=== PATIENT | male | born 1955 | race Caucasian/White ===

== ENCOUNTER 2017-02-27 09:05 | Emergency (ER) | payer MEDICARE, MEDICAID ==
[~2017-02-27] VITALS: Ht 175.3 cm; Wt 75.0 kg
[2017-02-27] MEDS ORDERED: FLUO40CA9 PO (09:18)
[2017-02-27] MEDS ORDERED: BUPR1FIL5 SUBD (09:18)
[2017-02-27 09:29] LABS: HEMATOCRIT 42.4 % (39.2-51.8); HEMOGLOBIN 13.9 g/dL (13.7-18.0); WHITE BLOOD COUNT 10.3 x10^3/uL (3.4-10)
[2017-02-27] MEDS ORDERED: PLEASE ENTER ALLERGIES MC SCH ×2 (09:30)
[2017-02-27] MEDS ORDERED: LORazepam 2 MG/ML, 1ML IVPush ONE (09:30)
[2017-02-27] MEDS ORDERED: MORPHINE SULFATE 4 MG/ML, 1ML IVPush PRN (09:30)
[2017-02-27] MEDS ORDERED: ONDANSETRON 2MG/ML, 2ML IVPush ONE (09:30)
[2017-02-27 09:41] LABS: ASPARTATE AMINO TRANSFERASE 12 U/L (15-37); BLOOD UREA NITROGEN 21 mg/dL (7-18)
[2017-02-27] MEDS ORDERED: MORPHINE SULFATE 4 MG/ML, 1ML ONE (09:53)
[2017-02-27 09:54] LABS: IS PT STATUS REG ER OR PRE ER? YES
[2017-02-27] MEDS ORDERED: ASPIRIN 81 MG TABLET CHEW ONE (09:54)
[2017-02-27] MEDS ORDERED: ONDANSETRON 2MG/ML, 2ML ONE (09:54)
[2017-02-27] MEDS ORDERED: LORazepam 2 MG/ML, 1ML ONE (09:54)
[2017-02-27] MEDS ORDERED: ASPIRIN 81 MG TABLET CHEW PO ONE (10:00)
[2017-02-27] MEDS ORDERED: KETOROLAC 30 MG/1 ML IVPush ONE (10:00)
[2017-02-27] MEDS ORDERED: KETOROLAC 30 MG/1 ML ONE (10:15)
[2017-02-27] MEDS ORDERED: CEFOTETAN PMX 1GM/50ML 50 ML ONE (11:07)
[2017-02-27 11:29] VITALS: BP 130/78
== END 2017-02-27 11:34 | disposition home or self-care (01) ==
LOC: ED 10:42
DX: S16.1XXA Strain of muscle, fascia and tendon at neck level, initial encounter (principal); M25.512 Pain in left shoulder; K21.9 Gastro-esophageal reflux disease without esophagitis; F17.200 Nicotine dependence, unspecified, uncomplicated; Z86.73 Personal history of transient ischemic attack (TIA), and cerebral infarction without residual deficits; X58.XXXA Exposure to other specified factors, initial encounter; Y93.89 Activity, other specified; Y92.89 Other specified places as the place of occurrence of the external cause; Y99.9 Unspecified external cause status
CPT/HCPCS: 36415; 71010; 72125; 80053; 84484; 85025; 85379; 93005; 96374; 96375; 99285; J1885; J2060; J2405

== ENCOUNTER 2018-12-19 08:33 | Emergency (ER) | payer MEDICARE, MEDICAID ==
[~2018-12-19] VITALS: Ht 175.3 cm; Wt 69.0 kg
[~2018-12-19 08:33] MED LIST: BUPR1FIL5 SUBD; FLUO40CA9 PO
[2018-12-19] MEDS ORDERED: MAALOX/HYOSCYAMINE/LIDOCAINE 45 ML BTL ONE (08:53)
[2018-12-19] MEDS ORDERED: MAALOX/HYOSCYAMINE/LIDOCAINE 45 ML BTL PO ONE (09:00)
--- NOTE | 2018-12-19 09:00 | NUR ---
ARRIVED BY AMBULANCE WITH BURNING ABDOMINAL AND EPIGASTRIC PAIN. MEDICATED PER ORDERS FOR SAME
--- NOTE | 2018-12-19 09:09 | NUR ---
PT STATES GI COCKTAIL SEEMED TO HELP WITH BURNING ABDOMINAL PAIN BUT THAT STILL HARD TO SWALLOW BECAUSE OF BURNING EPIGASTRIC PAIN. PT DENIES DIARRHEA, BLOOD IN STOOL OR VOMITING. PT STATES HE TAKES SUBOXONE AND THAT CAUSES CONSTIPATION
[2018-12-19 09:21] LABS: ALBUMIN 4.4 g/dL (3.4-5.0); ANION GAP 8 mmol/L (5-15); CHLORIDE 107 mmol/L (98-107)
[2018-12-19 09:23] LABS: BASOPHILS # (AUTO) 0.04 x10^3/uL (0-0.1); BASOPHILS % (AUTO) 0 % (0-1); EOSINOPHILS # (AUTO) 0.02 x10^3/uL (0-0.4); EOSINOPHILS % (AUTO) 0 % (1-7); LYMPHOCYTES # (AUTO) 1.32 x10^3/uL (1-3.4); LYMPHOCYTES % (AUTO) 14 % (22-44); MD NO; MEAN CORPUSCULAR HEMOGLOBIN 31.2 pg (27.5-34.5); MEAN CORPUSCULAR HGB CONC 33.3 g/dL (33.2-36.2); MEAN CORPUSCULAR VOLUME 93.7 fL (81-97); MEAN PLATELET VOLUME 9.2 fL (7.4-10.4); MONOCYTES # (AUTO) 0.68 x10^3/uL (0.2-0.8); MONOCYTES % (AUTO) 7 % (2-9); NEUTROPHILS # (AUTO) 7.31 x10^3/uL (1.8-6.8); NEUTROPHILS % (AUTO) 78 % (42-75); PLATELET COUNT 232 x10^3/uL (130-400); RED BLOOD COUNT 4.89 x10^6/uL (4.38-5.82); RED CELL DISTRIBUTION WIDTH 13.1 % (9.4-14.8)
[2018-12-19 09:24] LABS: ALANINE AMINOTRANSFERASE 20 U/L (12-78); ALKALINE PHOSPHATASE 77 U/L (45-117); BILIRUBIN,TOTAL 0.9 mg/dL (0.2-1.0); CREATININE 0.97 mg/dL (0.7-1.3)
--- NOTE | 2018-12-19 09:55 | NUR ---
REPORT RECEIVED FROM MAI HOOPER. ASSUMED CARE OF PT. PT AWARE THAT WE ARE WAITING FOR LAB/IMAGING RESULTS. PT ON CONT BP, CARDIAC AND O2 MONITORS. CALL LIGHT WITHIN REACH.
[2018-12-19 10:06] LABS: TROPONIN I < 0.015 ng/mL (0.000-0.045)
[2018-12-19 10:38] VITALS: BP 129/73
== END 2018-12-19 10:39 | disposition home or self-care (01) ==
LOC: ED 09:24
DX: R07.89 Other chest pain (principal); R10.13 Epigastric pain; K21.9 Gastro-esophageal reflux disease without esophagitis; F32.9 Major depressive disorder, single episode, unspecified; Z86.73 Personal history of transient ischemic attack (TIA), and cerebral infarction without residual deficits; F17.200 Nicotine dependence, unspecified, uncomplicated; Z88.0 Allergy status to penicillin
CPT/HCPCS: 36415; 71045; 80053; 83690; 84484; 85025; 93005; 99284

== ENCOUNTER 2019-04-28 18:45 | Emergency (ER) | payer MEDICARE, MEDICAID ==
[~2019-04-28] VITALS: Ht 175.3 cm; Wt 73.0 kg
--- NOTE | 2019-04-28 18:57 | NUR ---
Provided report to MAI Abrams. All questions answered. MAI Abrams to assume care of pt at this time.
[2019-04-28] MEDS ORDERED: LORazepam 1MG TABLET ONE (19:16)
[2019-04-28 19:23] LABS: BASOPHILS # (AUTO) 0.03 x10^3/uL (0-0.1); BASOPHILS % (AUTO) 0 % (0-1); EOSINOPHILS # (AUTO) 0.07 x10^3/uL (0-0.4); EOSINOPHILS % (AUTO) 1 % (1-7); LYMPHOCYTES # (AUTO) 2.73 x10^3/uL (1-3.4); LYMPHOCYTES % (AUTO) 37 % (22-44); MD NO; MEAN CORPUSCULAR HEMOGLOBIN 31.6 pg (27.5-34.5); MEAN CORPUSCULAR HGB CONC 32.9 g/dL (33.2-36.2); MEAN CORPUSCULAR VOLUME 95.8 fL (81-97); MEAN PLATELET VOLUME 9.3 fL (7.4-10.4); MONOCYTES # (AUTO) 0.61 x10^3/uL (0.2-0.8); MONOCYTES % (AUTO) 8 % (2-9); NEUTROPHILS # (AUTO) 3.86 x10^3/uL (1.8-6.8); NEUTROPHILS % (AUTO) 53 % (42-75); PLATELET COUNT 207 x10^3/uL (130-400); RED BLOOD COUNT 4.91 x10^6/uL (4.38-5.82); RED CELL DISTRIBUTION WIDTH 12.7 % (9.4-14.8)
[2019-04-28 19:28] LABS: AMPHETAMINE SCREEN, URINE Negative (Negative); BARBITURATE SCREEN, URINE Negative (Negative); BENZODIAZEPINE SCREEN, URINE Positive (Negative); CANNABINOID SCREEN, URINE Positive (Negative); COCAINE SCREEN, URINE Negative (Negative); METHADONE SCREEN, URINE Negative (Negative); OPIATE SCREEN, URINE Negative (Negative)
[2019-04-28] MEDS ORDERED: LORazepam 1MG TABLET PO ONE (19:30)
[2019-04-28] MEDS ORDERED: PLEASE ENTER HEIGHT AND WEIGHT MC SCH (19:30)
[2019-04-28 19:35] LABS: ALBUMIN 4.3 g/dL (3.4-5.0); ANION GAP 6 mmol/L (5-15); CHLORIDE 110 mmol/L (98-107)
[2019-04-28 19:47] LABS: ALANINE AMINOTRANSFERASE 16 U/L (12-78); ALKALINE PHOSPHATASE 74 U/L (45-117); BILIRUBIN,TOTAL 0.7 mg/dL (0.2-1.0); CREATININE 0.95 mg/dL (0.7-1.3); SALICYLATE LEVEL 8.5 mg/dL (2.8-20.0); TOTAL PROTEIN 7.7 g/dL (6.4-8.2)
--- NOTE | 2019-04-28 20:39 | NUR ---
PT ROOM SECURED WITH SI PERCAUTIONS AND SITTER AT PT DOOR.
--- NOTE | 2019-04-28 22:42 | NUR ---
PT ROOM SECURED WITH SI PERCAUTIONS AND SITTER AT PT DOOR.
--- NOTE | 2019-04-28 23:24 | NUR ---
Met with pt and conferred with psychiatrist. Pt will be admitted to 391.
[2019-04-29 00:44] VITALS: BP 132/78
[2019-05-01] MEDS ORDERED: FAMO20TA7 PO (13:20)
[2019-05-01] MEDS ORDERED: PANT40TA5 PO (13:20)
[2019-05-01] MEDS ORDERED: FLUO20CA8 PO (13:20)
== END 2019-04-29 00:47 ==
LOC: ED 22:02
DX: F32.2 Major depressive disorder, single episode, severe without psychotic features (principal); M54.9 Dorsalgia, unspecified; G89.29 Other chronic pain; K21.9 Gastro-esophageal reflux disease without esophagitis; Z86.73 Personal history of transient ischemic attack (TIA), and cerebral infarction without residual deficits; F17.210 Nicotine dependence, cigarettes, uncomplicated
CPT/HCPCS: 36415; 80053; 80307; 84443; 85025; 99285

== ENCOUNTER 2019-08-20 08:49 | Emergency (ER) | payer MEDICARE, MEDICAID ==
[~2019-08-20] VITALS: Ht 175.3 cm; Wt 61.5 kg
[~2019-08-20 08:49] MED LIST changes: +FAMO20TA7 PO; +FLUO20CA23 PO; +PANT40TA5 PO
[2019-08-20 09:24] LABS: BASOPHILS # (AUTO) 0.01 x10^3/uL (0-0.1); BASOPHILS % (AUTO) 0 % (0-1); EOSINOPHILS % (AUTO) 0 % (1-7); LYMPHOCYTES # (AUTO) 0.64 x10^3/uL (1-3.4); LYMPHOCYTES % (AUTO) 7 % (22-44); MD NO; MEAN CORPUSCULAR HEMOGLOBIN 31.7 pg (27.5-34.5); MEAN CORPUSCULAR HGB CONC 33.8 g/dL (33.2-36.2); MEAN CORPUSCULAR VOLUME 93.9 fL (81-97); MEAN PLATELET VOLUME 8.9 fL (7.4-10.4); MONOCYTES % (AUTO) 11 % (2-9); NEUTROPHILS # (AUTO) 7.41 x10^3/uL (1.8-6.8); NEUTROPHILS % (AUTO) 82 % (42-75); PLATELET COUNT 188 x10^3/uL (130-400); RED BLOOD COUNT 4.74 x10^6/uL (4.38-5.82); RED CELL DISTRIBUTION WIDTH 13.1 % (9.4-14.8)
--- NOTE | 2019-08-20 09:26 | NUR ---
PT TO RAD.
[2019-08-20] MEDS ORDERED: MAALOX/HYOSCYAMINE/LIDOCAINE 45 ML BTL ONE (09:27)
[2019-08-20] MEDS ORDERED: SODIUM CHLORIDE 0.9% 1,000ML IVBOLUS ONE (09:30)
[2019-08-20] MEDS ORDERED: MAALOX/HYOSCYAMINE/LIDOCAINE 45 ML BTL PO ONE (09:30)
[2019-08-20 09:33] LABS: ALANINE AMINOTRANSFERASE 18 U/L (12-78); ALBUMIN 3.8 g/dL (3.4-5.0); ANION GAP 14 mmol/L (5-15); CHLORIDE 103 mmol/L (98-107)
[2019-08-20 09:36] LABS: ALKALINE PHOSPHATASE 91 U/L (45-117); BILIRUBIN,TOTAL 0.6 mg/dL (0.2-1.0); TOTAL PROTEIN 7.5 g/dL (6.4-8.2)
--- NOTE | 2019-08-20 09:39 | NUR ---
PT RETURNED FROM RAD.
--- NOTE | 2019-08-20 10:01 | NUR ---
PT UPRIGHT ON GURNEY AWAKE & ASKING FOR WATER, RESPONDS APPROP TO STAFF, BROTHER AT BS, COMFORT MEASURES PROVIDED, CALL LIGHT WITHIN REACH.
[2019-08-20 10:02] VITALS: BP 127/75
--- NOTE | 2019-08-20 10:37 | NUR ---
Patient given discharge instructions and Rx, they have confirmed that they understand the instructions. Patient ambulatory with steady gait.
== END 2019-08-20 10:37 | disposition home or self-care (01) ==
LOC: ED 10:25
DX: K31.84 Gastroparesis (principal); Z86.73 Personal history of transient ischemic attack (TIA), and cerebral infarction without residual deficits; F17.200 Nicotine dependence, unspecified, uncomplicated
CPT/HCPCS: 36415; 74021; 80053; 83690; 85025; 93005; 99285; J7030; 99284

== ENCOUNTER → 2019-09-04 | Outpatient (CLI) | payer MEDICARE, MEDICAID ==
[~2019-09-04] MED LIST changes: +OMNIPAQUE 350 MG/ML, 100ML BOTTLE ONE
== END | disposition home or self-care (01) ==
LOC: RAD 12:56
PROVIDERS: ATTEND Internal Medicine Gastroenterology
DX: K76.0 Fatty (change of) liver, not elsewhere classified (principal); F41.9 Anxiety disorder, unspecified; F34.1 Dysthymic disorder; R41.3 Other amnesia
CPT/HCPCS: 74177; 74220; Q9967

== ENCOUNTER 2021-02-07 13:52 | Emergency (ER) | payer MEDICAID, MEDICARE ==
[~2021-02-07] VITALS: Ht 175.3 cm; Wt 67.0 kg
[~2021-02-07 13:52] MED LIST changes: -OMNIPAQUE 350 MG/ML, 100ML BOTTLE ONE; -PANT40TA5 PO; +PANT40TA6 PO
[2021-02-07 14:23] LABS: BASOPHILS % (AUTO) 0 % (0-1); EOSINOPHILS % (AUTO) 0 % (1-7); LYMPHOCYTES % (AUTO) 14 % (22-44); MEAN CORPUSCULAR HEMOGLOBIN 32.1 pg (27.5-34.5); MEAN CORPUSCULAR HGB CONC 34.6 g/dL (33.2-36.2); MEAN PLATELET VOLUME 8.6 fL (7.4-10.4); MONOCYTES % (AUTO) 7 % (2-9); NEUTROPHILS % (AUTO) 79 % (42-75); PLATELET COUNT 251 x10^3/uL (130-400); RED BLOOD COUNT 5.27 x10^6/uL (4.38-5.82); RED CELL DISTRIBUTION WIDTH 13.5 % (9.4-14.8)
[2021-02-07 14:33] LABS: ALANINE AMINOTRANSFERASE 18 U/L (12-78); ALBUMIN 4.4 g/dL (3.4-5.0); ANION GAP 5 mmol/L (5-15); CALCIUM 10.1 mg/dL (8.5-10.1); CHLORIDE 106 mmol/L (98-107); CREATININE 0.92 mg/dL (0.7-1.3)
[2021-02-07 14:38] LABS: ALKALINE PHOSPHATASE 77 U/L (45-117); BILIRUBIN,TOTAL 1.1 mg/dL (0.2-1.0); TOTAL PROTEIN 8.1 g/dL (6.4-8.2); TROPONIN I < 0.015 ng/mL (0.000-0.045)
--- NOTE | 2021-02-07 19:50 | NUR ---
pt to room from lobby
--- NOTE | 2021-02-07 19:51 | NUR ---
CC OF ABD PAIN IN LOWER MIDDLE ABD THAT RADIATES TO MULTIPLE OTHER AREAS OF ABD, 7/10 PAIN. PT HAS HAD PAIN ON/OFF FOR 6 MO AND WAS HOSPITALIZED 5 MO AGO. PT WAS DC BEFORE HAVING SCOPE DONE SO PT IS REQUESTING THAT NOW.
[2021-02-07] MEDS ORDERED: OMNIPAQUE 350 MG/ML, 100ML BOTTLE ONE (20:26)
[2021-02-07 22:00] VITALS: BP 121/75
[2021-02-07] MEDS ORDERED: MAALOX/HYOSCYAMINE/LIDOCAINE 45 ML BTL PO ONE (22:00)
[2021-02-07] MEDS ORDERED: MAALOX/HYOSCYAMINE/LIDOCAINE 45 ML BTL ONE (22:02)
== END 2021-02-07 22:39 | disposition home or self-care (01) ==
LOC: ED 22:00
DX: R10.84 Generalized abdominal pain (principal); R10.13 Epigastric pain; F17.210 Nicotine dependence, cigarettes, uncomplicated; Z86.73 Personal history of transient ischemic attack (TIA), and cerebral infarction without residual deficits
CPT/HCPCS: 36415; 71045; 74177; 80053; 83690; 84484; 85025; 93005; 99285; 99406; Q9967